=== PATIENT | male | born 1980 | race African-American/Black ===

== ENCOUNTER 2017-03-06 13:08 | Emergency (ER) | payer MEDICAID, SELFPAY ==
[~2017-03-06] VITALS: Ht 180.3 cm; Wt 72.6 kg
[2017-03-06] MEDS ORDERED: NORCO, ANEXSIA 5/325MG TABLET (HYDROcodone/ACETAMINOPHEN) PO ONE (14:00)
[2017-03-06 14:52] VITALS: BP 141/95
[2017-03-06] MEDS ORDERED: CYCL10TA PO (14:52)
[2017-03-06] MEDS ORDERED: NAPR500T PO (14:52)
[2017-03-06] MEDS ORDERED: HYDR-3713 PO (14:52)
--- NOTE | 2017-03-06 15:14 | REP ---
Pelvis bilateral hip study: History: Trauma. Findings: AP view of the pelvis shows an intact bony pelvic ring. No pelvic or sacral fracture is seen. No hip fracture is noted. AP and frog-leg views of each hip show smooth rounded femoral heads and intact hip joint spaces. There is a small os acetabuli on the left side. There is mild acetabular hypertrophy on the right. There is a mild bony convexity to the head/neck junction laterally in the proximal femur on both sides. These changes raise a question of CAM type femoroacetabular impingement. Impression: No acute fracture seen. Question CAM type femoroacetabular impingement bilaterally. A small os acetabuli on the left. Signed by Joce Presley MD 03/06/2017 05:01 P
--- NOTE | 2017-03-08 21:40 | ED PDOC ---
Post-Departure Follow-Up certified letter sent to pt re formal read of bilateral hip/pelvis films Dario Newby MD Mar 08, 2017 21:40
== END 2017-03-06 15:02 | disposition home or self-care (01) ==
LOC: M ED 14:04
DX: S70.02XA Contusion of left hip, initial encounter (principal); W13.2XXA Fall from, out of or through roof, initial encounter; Y92.099 Unspecified place in other non-institutional residence as the place of occurrence of the external cause; Y93.89 Activity, other specified; Y99.9 Unspecified external cause status

== ENCOUNTER 2017-05-22 16:27 | Emergency (ER) | payer MEDICAID, OTHER, SELFPAY ==
[~2017-05-22] VITALS: Ht 180.3 cm; Wt 77.3 kg
[~2017-05-22 16:27] MED LIST: CYCL10TA PO; HYDR-3713 PO; NAPR500T PO
[2017-05-22] MEDS ORDERED: NORCO, ANEXSIA 5/325MG TABLET (HYDROcodone/ACETAMINOPHEN) PO ONE (17:00)
--- NOTE | 2017-05-22 17:21 | REP ---
Clinical: Trauma. Technique: AP, lateral, bilateral oblique views of the right foot. Findings: There is a subtle nondisplaced intra-articular corner fracture at the base of the second toe middle phalanx. There is a subtle nondisplaced fracture of the first toe terminal tuft. There is dislocation at the fourth metatarsophalangeal joint. Impression: Dislocation at the fourth metatarsophalangeal joint. Subtle fracture involving the first toe terminal tuft and intra-articular corner fracture at the second toe middle phalanx. Signed by Mal Alves MD 05/22/2017 05:13 P
[2017-05-22] MEDS ORDERED: LIDOCAINE 1% MDV 20ML VIAL As Ordered ONE (17:55)
[2017-05-22] MEDS ORDERED: LIDOCAINE 2% MDV 20 ML VIAL SC ONE (18:00)
[2017-05-22] MEDS ORDERED: IBUP-1022 PO (19:11)
[2017-05-22] MEDS ORDERED: NORC1TAB4 PO (19:11)
[2017-05-22 19:20] VITALS: BP 132/78
--- NOTE | 2017-05-22 19:23 | REP ---
Clinical: Status post reduction. Technique: AP, lateral, bilateral oblique views of the right toes. Findings: Satisfactory reduction at the fourth metatarsophalangeal joint is appreciated and no associated fracture at the joint space is identified. Nondisplaced acute fracture of the second toe middle phalanx and first toe terminal tuft again identified. Impression: 1. Satisfactory reduction at the fourth MTP joint. 2. Nondisplaced fractures of the first terminal tuft and second middle phalanx. Signed by Mal Alves MD 05/22/2017 07:15 P
== END 2017-05-22 19:21 | disposition home or self-care (01) ==
LOC: M ED 16:27
DX: S92.501A Displaced unspecified fracture of right lesser toe(s), initial encounter for closed fracture (principal); V18.0XXA Pedal cycle driver injured in noncollision transport accident in nontraffic accident, initial encounter; Y92.410 Unspecified street and highway as the place of occurrence of the external cause; Y93.55 Activity, bike riding; Y99.9 Unspecified external cause status

== ENCOUNTER → 2017-08-12 | Outpatient (CLI) | payer MEDICAID ==
[~2017-08-12] MED LIST changes: +IBUP-1022 PO; +NORC1TAB4 PO
== END ==
LOC: M OUTALCOH 08:12
PROVIDERS: ATTEND Psychiatry & Neurology Psychiatry
DX: Z13.9 Encounter for screening, unspecified (principal); F14.20 Cocaine dependence, uncomplicated

== ENCOUNTER → 2017-10-06 | Outpatient (CLI) | payer MEDICAID | LOC: M OUTALCOH 07:43 | PROVIDERS: ATTEND Psychiatry & Neurology Psychiatry | DX: F14.20 Cocaine dependence, uncomplicated (principal); F12.20 Cannabis dependence, uncomplicated ==

== ENCOUNTER 2018-06-28 13:52 | Emergency (ER) | payer MEDICAID | END 2018-06-28 14:00 | disposition left against medical advice (07) | LOC: M ED 13:52 | DX: M54.9 Dorsalgia, unspecified (principal); Z53.21 Procedure and treatment not carried out due to patient leaving prior to being seen by health care provider ==

== ENCOUNTER 2019-02-15 09:43 | Emergency (ER) | payer MEDICAID, OTHER, SELFPAY ==
[~2019-02-15 09:43] MED LIST changes: +NAPR-837 PO; -NAPR500T PO; -NORC1TAB4 PO; +NORC1TAB7 PO
[2019-02-15] MEDS ORDERED: NS 1,000 ML IV ONE ×2 (10:00→13:15)
[2019-02-15 10:27] LABS: BASO % 0.5 % (0.0-1.0); EOS # 0.1 10^3/uL (0.0-0.50); EOS % 2.1 % (0.0-3.0); HEMATOCRIT 37.1 % (42.0-52.0); HEMOGLOBIN 13.1 g/dl (13.5-17.5); LYMPH # 0.6 10^3/uL (1.5-4.5); MEAN CORPUSCULAR HEMOGLOBIN 29.9 pg (27.0-33.0); MEAN CORPUSCULAR HGB CONC 35.3 g/dl (32.0-36.5); MEAN CORPUSCULAR VOLUME 84.7 fl (80.0-96.0); MONO # 0.4 10^3/uL (0.0-0.8); MONO % 9.2 % (0.0-5.0); NEUTROPHILS # 3.1 10^3/uL (1.8-7.7); NEUTROPHILS % 73.2 % (36.0-66.0); PLATELET COUNT, AUTOMATED 175 10^3/uL (150-450); RED BLOOD COUNT 4.38 10^6/uL (4.30-6.10); WHITE BLOOD COUNT 4.3 10^3/uL (4.0-10.0)
[2019-02-15 11:06] LABS: ALBUMIN 3.9 GM/DL (3.2-5.2); ALT/SGPT 55 U/L (12-78); BILIRUBIN,DIRECT 0.2 MG/DL (0.0-0.2); BILIRUBIN,TOTAL 0.8 MG/DL (0.2-1.0); BLOOD UREA NITROGEN 17 MG/DL (7-18); CALCIUM LEVEL 8.3 MG/DL (8.5-10.1); CARBON DIOXIDE LEVEL 29 MEQ/L (21-32); CHLORIDE LEVEL 101 MEQ/L (98-107); CPK CREATINE PHOSPHOKINASE 558 U/L (39-308); CREATININE FOR GFR 0.65 MG/DL (0.70-1.30); GLOMERULAR FILTRATION RATE > 60.0 (>60); GLUCOSE, FASTING 77 MG/DL (70-100); POTASSIUM SERUM 3.7 MEQ/L (3.5-5.1); SALICYLATE LEVEL < 1.7 MG/DL (5.0-30.0); SODIUM LEVEL 137 MEQ/L (136-145)
[2019-02-15 11:07] LABS: ACETAMINOPHEN LEVEL < 2.0 UG/ML (10.0-30.0); ETHYL ALCOHOL (ETHANOL) < 0.003 % (0.000-0.010)
[2019-02-15 12:07] LABS: TROPONIN I 0.04 NG/ML (< 0.10)
[2019-02-15 14:30] VITALS: BP 130/74
[2019-02-15 14:47] LABS: MB/CK RELATIVE INDEX 1.99 (< OR =4); TROPONIN I 0.04 NG/ML (< 0.10)
[2019-02-15 14:52] LABS: AMPHETAMINES LEVEL URINE POSITIVE (NEGATIVE); BARBITURATES URINE NEGATIVE (NEGATIVE); BENZODIAZEPINES URINE NEGATIVE (NEGATIVE); CANNABINOIDS URINE NEGATIVE (NEGATIVE); COCAINE METABOLITE URINE NEGATIVE (NEGATIVE); METHADONE URINE NEGATIVE (NEGATIVE); OPIATES URINE POSITIVE (NEGATIVE); PHENCYCLIDINE URINE NEGATIVE (NEGATIVE)
--- NOTE | 2019-02-15 22:09 | ECGEPIP ---
Stationary ECG Study [facility] - ED Test Date: 2019-02-15 Pat Name: ELEANOR BIRD Department: Room: - Gender: M [employer]: george : 1980 Requested By: Tonja Howell Order Number: [id number] Reading MD: Doni Chavis Measurements Intervals [place] Rate: 50 P: 46 DC: 147 QRS: 76 QRSD: 104 T: 57 QT: 479 QTc: 439 Interpretive Statements SINUS BRADYCARDIA NSTTW ABNORMALITIES NO PRIORS FOR COMPARISON Electronically Signed On 02-15-2019 22:09:22 EDT by Doni Chavis
== END 2019-02-15 15:37 | disposition home or self-care (01) ==
LOC: M ED 09:43 → EDBD 09:43 → M ED 15:37
DX: F19.10 Other psychoactive substance abuse, uncomplicated (principal); R00.1 Bradycardia, unspecified; Z72.0 Tobacco use; Z91.018 Allergy to other foods
CPT/HCPCS: 80048; 80076; 80307; 82550; 82553; 84443; 85025; 93005; 93041; 94760; 96360; 96361; 99285; G0480

== ENCOUNTER → 2019-02-16 | Outpatient (CLI) | payer MEDICAID, SELFPAY | LOC: M OUTALCOH 08:02 | PROVIDERS: ATTEND Psychiatry & Neurology Psychiatry | DX: F15.20 Other stimulant dependence, uncomplicated (principal) ==

== ENCOUNTER → 2019-03-15 | Outpatient (RCR) | payer MEDICAID | LOC: M OUTALCOH 02-23 08:09 | PROVIDERS: ATTEND Psychiatry & Neurology Psychiatry | DX: F14.20 Cocaine dependence, uncomplicated (principal); F10.10 Alcohol abuse, uncomplicated; Z72.0 Tobacco use ==

== ENCOUNTER 2019-03-22 16:00 | Outpatient (RCR) | payer MEDICAID | END 2019-04-15 | LOC: M OUTALCOH 16:00 | PROVIDERS: ATTEND Psychiatry & Neurology Psychiatry | DX: F14.20 Cocaine dependence, uncomplicated (principal); F10.10 Alcohol abuse, uncomplicated; Z72.0 Tobacco use ==